=== PATIENT | male | born 1975 | race Caucasian/White ===

== ENCOUNTER 2022-02-07 20:19 | Emergency (ER) | payer OTHER, SELFPAY ==
[2022-02-07 20:35] VITALS: BP 123/94; PULSE 70; RESP 16; TEMP 36.6; O2SAT 100
--- NOTE | 2022-02-07 20:51 | ED.GENADULT ---
HPI - General Adult General Chief complaint: Unspecified Stated complaint: multiple bee stings, severe itching Time Seen by Provider: 02/07/22 20:26 History of Present Illness HPI narrative: 46-year-old male presents the emergency room after being stung by multiple hornets this morning. Patient states that he counted over 30 different areas where he was stung. Admits to taking Benadryl multiple times throughout the day, but the itching and swelling remain. Denies any shortness of breath difficulty breathing dysphagia or odynophagia. Related Data Allergies Allergy/AdvReac Type Severity Reaction Status Date / Time ceftriaxone [Rocephin] Allergy Intermediate Unknown Verified 02/07/22 20:41 Review of Systems Review of Systems: CONSTITUTIONAL: Denies fever, chills, or sweats. EYES: Denies visual changes, redness, or discharge. ENT: Denies rhinorrhea, congestion, sore throat, or otalgia. CARDIOVASCULAR: Denies chest pain, palpitations, or edema. RESPIRATORY: Denies cough or dyspnea. GASTROINTESTINAL: Denies abdominal pain, nausea, vomiting, or diarrhea. GENITOURINARY: Denies dysuria or hematuria. SKIN: Reports multiple to lower extremities MUSCULOSKELETAL: Denies back pain, joint pain, or myalgia. NEUROLOGIC: Denies headache, numbness, dizziness, or weakness. PSYCHIATRIC: Denies anxiety or depression. [facility] Social History Social History Smoking status: Unknown if ever smoked Exam Narrative: GENERAL: Well-appearing, well-nourished, no physical limitations, and in no acute distress. HEAD: Normocephalic, atraumatic. EYES: Conjunctivae normal, PERRLA and EOMI. CHEST: Clear to auscultation. No respiratory distress. No wheezes rales or rhonchi. No tenderness. HEART: Regular rate and rhythm. No murmur heard. Normal peripheral pulses. EXTREMITIES: Normal range of motion. No edema. No clubbing or cyanosis SKIN: Warm, dry, no rash. Generalized swelling to lower extremities with multiple erythematous punctum varghese NEURO: No focal deficits. Alert and oriented x3. MAEW. CN's II-XI intact bilaterally, normal gait PSYCH: Cooperative. Normal mood and affect. Course Vital Signs Vital signs: Vital Signs Temperature 36.6 C 02/07/22 20:35 Pulse Rate 70 02/07/22 20:35 Respiratory Rate 16 02/07/22 20:35 Blood Pressure 123/94 H 02/07/22 20:35 Pulse Oximetry 100 02/07/22 20:35 Temperature 36.6 C 02/07/22 20:35 Pulse Rate 70 02/07/22 20:35 Respiratory Rate 16 02/07/22 20:35 Blood Pressure 123/94 H 02/07/22 20:35 Pulse Oximetry 100 02/07/22 20:35 Medical Decision Making Vital Signs Vital Signs: Vital Signs Temperature 36.6 C 02/07/22 20:35 Pulse Rate 70 02/07/22 20:35 Respiratory Rate 16 02/07/22 20:35 Blood Pressure 123/94 H 02/07/22 20:35 Pulse Oximetry 100 02/07/22 20:35 Temperature 36.6 C 02/07/22 20:35 Pulse Rate 70 02/07/22 20:35 Respiratory Rate 16 02/07/22 20:35 Blood Pressure 123/94 H 02/07/22 20:35 Pulse Oximetry 100 02/07/22 20:35 Discharge Plan Discharge Clinical Impression: Bee sting Patient Disposition: Home, Self-Care Condition: Stable Instructions: Antibiotic Form, Insect Bite or Sting (ED) Additional Instructions: Recommend taking Claritin or Zyrtec during the day. May take Benadryl at night. Also recommend taking a daily Pepcid while you are on the prednisone. Prescriptions: New prednisone 20 mg tablet 60 mg PO DAILY 5 Days Qty: 15 0RF Follow-up/Referrals: GAVIN,CHARMAINE CARTWRIGHT [Primary Care Provider] - Time of Disposition: 20:54
[2022-02-07] MEDS: FAMOTIDINE 20 MG/2 ML VIAL IV PUSH (20:59)
[2022-02-07] MEDS: methylPREDNISolone SOD SUCC 125 MG VIAL IV PUSH (20:59)
[2022-02-07] MEDS: diphenhydrAMINE HCl INJ 50 MG/ML VIAL 25 MG IV PUSH (20:59)
== END 2022-02-07 21:50 | disposition home or self-care (01) ==
LOC: ANHED 21:49
PROVIDERS: Emergency Provider Nurse Practitioner Family; PCP Nurse Practitioner Family
DX: T63.451A Toxic effect of venom of hornets, accidental (unintentional), initial encounter (principal)
CPT/HCPCS: 96374; 96375; 99284; J1200; J2930